=== PATIENT | female | born 1995 | race African-American/Black ===

== ENCOUNTER 2017-03-07 12:42 | Emergency (ER) | payer MEDICAID ==
[~2017-03-07] VITALS: Ht 154.9 cm; Wt 52.6 kg
[~2017-03-07 12:42] MED LIST: PRENCAP2
[2017-03-07 14:19] LABS: Basophils # (auto) 0 uL; Basophils % (auto) 0.4 % (0.0-2.0); Eosinophils # (auto) 0.1 uL; Eosinophils % (auto) 1.8 % (0.0-7.0); Hematocrit 38.9 % (36.0-46.0); Hemoglobin 12.8 g/dL (12.2-16.2); Lymphocytes # (auto) 1.6 uL; Lymphocytes % (auto) 34.3 % (10.0-50.0); Mean Corpuscular Hemoglobin 29.8 pg (28.0-32.0); Mean Corpuscular Volume 90.2 fL (80.0-100.0); Mean Platelet Volume 8.8 fL (7.4-10.4); Monocytes # (auto) 0.4 uL; Monocytes % (auto) 7.8 % (0.0-12.0); Neutrophils # (auto) 2.7 uL; Neutrophils % (auto) 55.7 % (37.0-80.0); Platelet Count (auto) 279 10^3/uL (140-450); Red Cell Distribution Width 13.5 % (11.6-16.0); White Blood Cell 4.8 10^3/uL (4.4-10.8)
[2017-03-07 16:22] LABS: Urine Bilirubin Negative (Negative); Urine Blood 2+ /uL (Negative); Urine Color Colorless (Yellow); Urine Glucose Normal (Normal); Urine Ketone Negative (Negative); Urine Nitrite Negative (Negative); Urine RBC <1 /hpf (0 - 4); Urine Squamous Epithelial Cell FEW /hpf (<5); Urine Urobilinogen Normal (Negative)
[2017-03-07 19:04] VITALS: BP 142/95
== END 2017-03-07 19:23 | disposition home or self-care (01) ==
LOC: ER 12:46
DX: O20.0 Threatened abortion (principal); Z3A.01 Less than 8 weeks gestation of pregnancy
CPT/HCPCS: 36415; 76801; 81001; 84702; 85025; 86901

== ENCOUNTER 2019-10-07 13:37 | Observation (INO) | payer MEDICAID ==
[2019-10-07] MEDS ORDERED: MET50T GT (14:29)
== END 2019-10-07 14:50 | disposition home or self-care (01) | DRG 566 ==
LOC: LDRP 13:37
PROVIDERS: ADMIT Obstetrics & Gynecology; ATTEND Obstetrics & Gynecology
DX: O26.893 Other specified pregnancy related conditions, third trimester (principal); R10.2 Pelvic and perineal pain; Z3A.28 28 weeks gestation of pregnancy
CPT/HCPCS: 59025; 81002; G0378